=== PATIENT | female | born 1985 | race Caucasian/White ===

== ENCOUNTER 2017-11-02 19:31 | Emergency (ER) | payer SELFPAY ==
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
[2017-11-02 22:22] VITALS: BP 119/62
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
== END 2017-11-02 22:17 | disposition home or self-care (01) ==
LOC: MW.ED 19:31
DX: S00.03XA Contusion of scalp, initial encounter (principal); T74.91XA Unspecified adult maltreatment, confirmed, initial encounter; Y04.2XXA Assault by strike against or bumped into by another person, initial encounter
CPT/HCPCS: 70450; 70450-26; 81025; 99283; 99284-25